=== PATIENT | female | born 1995 | race Caucasian/White ===

== ENCOUNTER 2021-12-20 04:30 | Inpatient (IN) ==
[2021-12-20] MEDS ORDERED: OXYTOCIN 30 UNITS/500 ML BAG IV PRN ×2 (05:03→07:57)
[2021-12-20 05:55] LABS: Hematocrit (blood only) 36.9 % (37-47); Hemoglobin 12.7 g/dL (12.0-16.0); Mean Corpuscular Hgb Conc 34.4 g/dL (32-36); Mean Platelet Volume 11.5 fL (7.4-10.4); Platelet Count 174 K/uL (130-400); RDW Coefficient of Variation 13.9 % (11.5-14.5); White Blood Count 11.21 K/uL (4.8-10.8)
[2021-12-20] MEDS: LACTATED RINGER'S 1,000 ML IV PRN ×3 (06:30→11:28)
[2021-12-20] MEDS ORDERED: BUPIVACAINE 0.25% 30 ML VIAL ONE (06:34)
[2021-12-20] MEDS ORDERED: fentaNYL citrate 100 MCG/2 ML VIAL ONE (06:34)
[2021-12-20] MEDS ORDERED: SODIUM CHLORIDE 0.9% INJ 10 ML VIAL ONE (06:34)
[2021-12-20] MEDS ORDERED: ePHEDrine sulfate 50 MG/ML AMP ONE (06:34)
[2021-12-20] MEDS ORDERED: fentaNYL 2MCG/ML ROPIVACAINE 1.25MG/ML 100 ML BAG EPI ONE (06:34)
--- NOTE | 2021-12-20 06:44 | Anesthesiology Consultation ---
Date of Service December 20, 2021 Assessment & Plan Chart Review Chart Review: Acceptable Risk for Surgery, Patient NOT seen in Pre Admission Testing and Acceptable Risk for Labor Epidural Consults Requested none ASA ASA2 Proposed Anesthesia Anesthesia Type: Labor Epidural and CSE History Height/Weight Height: 5 ft 2 in Weight: 92.533 kg Allergies Allergy/AdvReac Type Severity Reaction Status Date / Time ethinyl estradiol AdvReac Intermediate Tachycardia Verified 12/16/21 13:49 [From Larissia] levonorgestrel AdvReac Intermediate Tachycardia Verified 12/16/21 13:49 [From Larissia] Medications Home Medications Medication Instructions Recorded Confirmed Last Taken prenat.vits,sunny,jhr-xwdt-citab 1 tab PO DAILY 02/25/21 12/20/21 12/19/21 levothyroxine 100 mcg capsule 100 mcg PO DAILY cap 05/07/21 12/20/21 12/12/21 (Tirosint) acetone (urine) test (Ketone Urine #50 ea 10/08/21 12/16/21 Unknown Test) blood sugar diagnostic (OneTouch #150 ea 10/08/21 12/16/21 Unknown Verio test strips) blood-glucose meter (OneTouch #1 ea 10/08/21 12/16/21 Unknown Verio Flex meter) lancets 33 gauge (OneTouch Delica #150 ea 10/08/21 12/16/21 Unknown Plus Lancet) Active Medications Generic Name Dose Route Start Last Admin Trade Name Freq PRN Reason Stop Dose Admin Lactated Ringer's 1,000 mls @ 125 mls/hr 12/20/21 05:03 12/20/21 06:30 Lr IV 12/22/21 05:02 999 mls/hr .Q8H PRN Administration L&D Protocol Protocol Past Medical History Medical History Hypothyroid No significant past medical history Exercise / Class Metabolic Activity II 4-5 Yardwork/Stairs/Walk up hill Past Family History Family History Mother Thyroid disease Breast cancer Grandmother (Maternal) Breast cancer Grandmother (Paternal) Breast cancer Grandfather (Maternal) Epilepsy Past Surgical History Surgical History No significant past surgical history S/P wisdom tooth extraction Past Anesthesia History No Hx of Anesthesia Complications and No Family Hx of Anesthesia Complications History of PONV No Hx of PONV and No Hx of Motion Sickness Social History Smoking Status: Never smoker Hx Alcohol Use: No Hx Substance Use: No Physical Exam Vital Signs Last Vital Signs Pulse 96 H 12/20/21 04:41 Resp 18 12/20/21 04:43 BP 121/71 12/20/21 04:41 Testing Laboratory Results 12/20/21 05:37
[2021-12-20] MEDS ORDERED: ONDANSETRON INJ 2 MG/ML 2 ML VIAL IV PRN (07:28)
[2021-12-20] MEDS ORDERED: ePHEDrine sulfate 50 MG/ML AMP IV PRN (07:28)
[2021-12-20] MEDS ORDERED: fentaNYL 2MCG/ML ROPIVACAINE 1.25MG/ML 100 ML BAG EPI PRN (07:28)
[2021-12-20] MEDS ORDERED: diphenhydrAMINE 50 MG/ML VIAL IV PRN (07:28)
[2021-12-20] MEDS ORDERED: PROMETHAZINE HCL 25 MG in SODIUM CHLORIDE 0.9% 50 ML IV PRN (07:28)
[2021-12-20] MEDS ORDERED: NALOXONE HCL 0.4 MG/1 ML VIAL/CARP IV PRN (07:28)
[2021-12-20] MEDS ORDERED: NALOXONE HCL 1 MG in SODIUM CHLORIDE 0.9% 1000ML 1,000 ML IV PRN (07:28)
[2021-12-20] MEDS ORDERED: NALBUPHINE HCL INJ 10 MG/ML AMP IV PRN (07:28)
--- NOTE | 2021-12-20 08:04 | History & Physical Report ---
Date of Service December 20, 2021 Assessment & Plan (1) SROM (spontaneous rupture of membranes): (2) Gestational diabetes mellitus (GDM) affecting , antepartum: (3) Hypothyroidism during : Plan: 26 y/o at 40 2/7 wga presents w/ SROM VSS Fetus cat 1 SROM - SVE similar to on arrival, discussed pitocin and pt amenable GBS neg epidural in place Admission and Anticipated Discharge Date Admission Date: December 20, 2021 History of Present Illness Chief Complaint: LOF Primary Care Provider: Vijaya Souza, DO 26 y/o at 40 2/7 wga presents w/ SROM early this AM and contractions. Went to bathroom and voided, then felt gush of fluid that has not stopped since. Positive nitrazine and grossly ruptured by nursing exam. Contractions started after PNI: A1GDM Hypothyroid FOB's 1/2 sister with spina bifida Past REGULATOR INSPECTOR Hx: G1 2020 SAB G2 current q23-25d cycles denies hx STIs Allergies Allergy/AdvReac Type Severity Reaction Status Date / Time ethinyl estradiol AdvReac Intermediate Tachycardia Verified 12/16/21 13:49 [From Larissia] levonorgestrel AdvReac Intermediate Tachycardia Verified 12/16/21 13:49 [From Larissia] Home Medications Medication Instructions Recorded Confirmed Type prenat.vits,sunny,wxh-ecnq-gatiw 1 tab PO DAILY 02/25/21 12/20/21 History levothyroxine 100 mcg capsule 100 mcg PO DAILY cap 05/07/21 12/20/21 History (Tirosint) acetone (urine) test (Ketone Urine #50 ea 10/08/21 12/16/21 Rx Test) blood sugar diagnostic (OneTouch #150 ea 10/08/21 12/16/21 Rx Verio test strips) blood-glucose meter (OneTouch #1 ea 10/08/21 12/16/21 Rx Verio Flex meter) lancets 33 gauge (OneTouch Delica #150 ea 10/08/21 12/16/21 Rx Plus Lancet) Patient History Medical History Hypothyroid No significant past medical history Surgical History No significant past surgical history S/P wisdom tooth extraction Family History Mother Thyroid disease Breast cancer Grandmother (Maternal) Breast cancer Grandmother (Paternal) Breast cancer Grandfather (Maternal) Epilepsy Social History Smoking Status: Never smoker Hx Alcohol Use: No Hx Substance Use: No Preferred Language: Venezuelan Communication Ability: Effective Centrifugal Station Operator Required: No Beliefs That Will Affect Care: None marital status: Single marital status details: Elroy (31) [phone] Current Living Situation: Significant Other Current Living Situation Comment: lives with fob, 1 cat, fob to change litter. current occupational status: employed current occupation: [employer] Other Information That Helps Us Care for You: No Feels Safe at Home: Yes Safety Concerns: Feels Safe At This Time Assistive Devices: None Physical Exam Genitourinary: OB Exam Abdomen: + vertex and + estimated weight (7-8) Manual OB Exam: + cervical dilation 3 cm, + cervical effacement 60% and + station -2 OB Exam Monitor Tracing: + external FHT monitor used, + external uterine monitor used (q3-4) and + category I (140/mod/+accel/-decel) Results & Data ([facility]) Vital Signs (Past 12 Hours) Vital Signs Temp Pulse Resp BP Pulse Ox 12/20/21 07:55 91 H 97 12/20/21 07:50 85 97 12/20/21 07:46 96 H 115/62 12/20/21 07:45 105 H 96 12/20/21 07:40 120 H 98 12/20/21 07:39 126 H 140/67 12/20/21 07:35 89 100 12/20/21 07:34 81 117/66 12/20/21 07:30 78 98 12/20/21 07:29 176 H 109/42 L 12/20/21 07:27 99 H 92/48 L 12/20/21 07:25 97 H 99 12/20/21 07:23 92 H 91/54 L 12/20/21 07:20 101 H 96 06/26/22 07:18 98 H 126/63 06/26/22 07:15 99 H 99 12/20/21 07:13 96 H 91 12/20/21 07:10 94 H 98 12/20/21 07:05 93 H 98 12/20/21 05:00 97.5 F L 12/20/21 04:43 18 12/20/21 04:41 96 H 121/71 Laboratory Results OB Labs: Blood Type O Positive 05/13/21 Antibody Screen NEGATIVE 05/13/21 Hemoglobin 12.3 g/dL (12.0-16.0) 09/30/21 Hematocrit 37.0 % (37-47) 09/30/21 Mean Corpuscular Volume 90.9 fL (80-100) 05/13/21 Platelet Count 223 K/uL (130-400) 05/13/21 Rubella IgG Antibody Immune (Immune) 05/13/21 Rapid Plasma Reagin Nonreactive (Nonreactive) 05/13/21 Hepatitis B Surface Antigen Neg (Neg) 05/13/21 HIV (1&2) Ab and P24 Ag, 4th Gener Neg (Neg) 05/13/21 Glucose 1 Hour 50 gm Load 159 mg/dl (70-130) H 09/30/21 Maternal Serum Alpha Fetoprotein 27.2 ng/mL 07/08/21 OB Optional Labs: Chlamydia trachomatis RNA NOT DETECTED (NOT DETECTED) 05/13/21 Neisseria gonorrhoeae RNA NOT DETECTED (NOT DETECTED) 05/13/21 Thyroid Stimulating Hormone (TSH) 0.609 uIu/ml (0.300-4.500) 06/29/21 Alpha Fetoprotein Triple Screen SEE NOTEB 07/08/21 Labs Reviewed: low risk panorama--[facility] gudelia afp--[facility] hep C neg--[facility] Diagnostic Findings ant plac Code Status & VTE Plan VTE Prophylaxis Plan VTE Prophylaxis will be ordered: No Coding Level of Care Code None Diagnoses SROM (spontaneous rupture of membranes) Gestational diabetes mellitus (GDM) affecting , antepartum O24.419 Hypothyroidism during O99.280; E03.9
--- NOTE | 2021-12-20 13:21 | Delivery Summary ---
Vaginal Delivery Summary Date of Service December 20, 2021 Vaginal Delivery Summary DIAGNOSES: 1. Mcneill intrauterine at 40w2d gestation. 2. Group B Streptococcus Neg. PROCEDURE: Spontaneous vaginal delivery and repair of second degree laceration. SURGEON: Carol Ann Medeiros MD. ROTARY DUMP OPERATOR: None. ESTIMATED BLOOD LOSS: 350 mL. COMPLICATIONS: None. PLACENTA: Spontaneous and intact with a 3-vessel cord. DISPOSITION: Stable to labor and delivery. DESCRIPTION: Due to bradycardia that became persistent once the patient began pushing, she was counseled on VAVD and accepted the risks and benefits. Bladder was emptied via straight cath, head was palpated and in either DOA or DOP position, difficult to assess due to caput and molding. The vacuum was applied to the most forward-facing part of the head, felt to be the likely flexion point, and traction was gently applied through the next contraction. The head came to , and at the end of the third pushing effort in that one contraction, just as mom was about to rest, the vacuum popped off. From that point the FHT seemed to have improved to a normal baseline, so the vacuum was not re-applied and the mother was allowed and encouraged to push. The patient pushed well. Once it was ready, the infant's head was allowed to deliver with contraction force and no further active pushing, with the perineum protected during this time. There was no nuchal cord. The head was in DOA pos ition and the left shoulder was anterior. The shoulders and body delivered without any difficulty, and the was placed on the maternal abdomen. It was vigorous and moving all extremities, and making respiratory efforts. The cord was doubly clamped by the MD and then cut by the FOB. The placenta delivered spontaneously and was noted to be intact and with a 3VC. The cervix, vagina and perineum were examined and were found to have a small second- degree laceration which was repaired using 3-0 vicryl in the usual manner. The fundus was firm and lochia minimal immediately after delivery. [facility] Vaginal Delivery Charge Vaginal Delivery Codes: 71902 global code for the antepartum, delivery, and post-
--- NOTE | 2021-12-20 13:40 | Anesthesia Procedure Note ---
Date of Service December 20, 2021 Anesthesia Post Epidural Note Vital Signs Vital Signs: Temp Pulse Resp BP Pulse Ox 36.7 C 94 H 18 113/58 L 83 L 12/20/21 11:10 12/20/21 13:29 12/20/21 11:10 12/20/21 13:29 12/20/21 12:46 Pain Intensity Abdomen: Pain Intensity: 9 Notes Mental Status: alert / awake / arousable Nausea / Vomiting: adequately controlled Pain: adequately controlled Airway Patency, RR, SpO2: stable & adequate BP & HR: stable & adequate Hydration State: stable & adequate Neuraxial Anesthesia: was administered and sensory block is resolving Anesthetic Complications: no major complications apparent Epidural: Removed without complications and With tip intact
[2021-12-20] MEDS ORDERED: oxyCODONE/ACETAMINOPHEN 5mg/325mg TAB PO PRN (13:41)
[2021-12-20] MEDS ORDERED: BENZOCAINE 20% AER SPR 82.5 GM CAN EXT PRN (13:41)
[2021-12-20] MEDS ORDERED: DIPHTHERIA/TETANUS/PERTUSSIS 0.5 ML SYR/VIAL IM ONE (13:41)
[2021-12-20] MEDS ORDERED: ACETAMINOPHEN 325 MG TAB PO PRN (13:41)
[2021-12-20] MEDS ORDERED: HYDROCORTISONE ACETATE 25 MG SUPP PR PRN (13:41)
[2021-12-20] MEDS: IBUPROFEN 600 MG TAB PO PRN (20:04)
[2021-12-20] MEDS: DOCUSATE SODIUM 100 MG CAP PO SCH (21:04)
[2021-12-21] MEDS: IBUPROFEN 600 MG TAB PO PRN ×4 (04:01→20:53)
[2021-12-21] MEDS: TIROSINT 100 MCG PO SCH (05:59)
[2021-12-21] MEDS ORDERED: LEVOTHYROXINE SODIUM 125 MCG TABLET PO ONE (06:00)
[2021-12-21 06:03] LABS: Hematocrit (blood only) 32.1 % (37-47); Hemoglobin 10.8 g/dL (12.0-16.0); Mean Corpuscular Hemoglobin 30.6 pg (25-34); Mean Corpuscular Hgb Conc 33.6 g/dL (32-36); Mean Corpuscular Volume 90.9 fL (80-100); Mean Platelet Volume 10.7 fL (7.4-10.4); Platelet Count 137 K/uL (130-400); RDW Coefficient of Variation 14.3 % (11.5-14.5); RDW Standard Deviation 47.4 fL (36.4-46.3); Red Blood Count 3.53 M/uL (4.2-5.4); White Blood Count 12.03 K/uL (4.8-10.8)
[2021-12-21] MEDS ORDERED: TIROSINT PO SCH (06:30)
[2021-12-21] MEDS ORDERED: LEVOTHYROXINE SODIUM 100 MCG TABLET PO SCH (06:30)
--- NOTE | 2021-12-21 07:35 | Obstetrical Progress Note ---
Date of Service December 21, 2021 Assessment & Plan (1) Encounter for care and examination after delivery: Plan: Patient is a 26-year-old now female who delivered via normal spontaneous vaginal delivery, day 1. complicated by ges tational diabetes mellitus and hypothyroidism -Continue routine care, will keep today -GBS negative,O+, antibody negative, rubella immune -Hemoglobin 10.8 -Encouraged ambulation -Encourage breast-feeding - follow-up with Dr. Medeiros in 6 weeks Admission and Anticipated Discharge Date Admission Date: December 20, 2021 Supervising Physician Co-Signing Physician Notes Resident Physician Supervision Note: I was present with Dr. Emery during the history and exam. I discussed the case with the resident and agree with the findings and plan as documented in the note. Any exceptions or clarifications are listed here: PP1 s/p , doing well. Meeting all pp milestones, continue routine pp care Documented By: Yenifer Ugarte MD Subjective Patient is a 26-year-old now female who delivered via normal spontaneous vaginal delivery, day 1. complicated by gestational diabetes mellitus and hypothyroidism. Patient doing overall well, seems fatigued this morning. Patient been able to walk around the room without difficulty. Patient voiding and passing gas. No bowel movement as of yet. Patient eating and drinking without nausea or vomiting. Lochia moderate and improving. Patient breast-feeding without difficulty. Pain currently controlled and rated about a 3 out of 10. Patient denies fever, chills, chest pain, shortness of breath, UTI symptoms, or headache. Patient has no other complaints at this time. Review of Systems Review of Systems: All systems reviewed & are unremarkable except as noted in HPI & below Physical Exam Constitutional: WD/WN, vitals as above Eyes: + anicteric sclerae Neck: normal visual inspection Respiratory: normal respiratory effort, lungs clear to auscultation Cardiovascular: RRR, no murmur, no edema Gastrointestinal (Abdomen): normal bowel sounds, soft, nontender, no hepatosplenomegaly Musculoskeletal: Head/Neck/Chest: normocephalic and head atraumatic Skin: no rashes, warm and dry Neurologic: moves all extremities Psychiatric: A+Ox3, euthymic affect Genitourinary: Uterus fundus palpated at the level of the umbilicus, firm. Results & Data ([facility]) Vital Signs (Past 12 Hours) Vital Signs Temp Pulse Resp BP Pulse Ox 12/21/21 03:55 36.6 C 82 18 102/65 98 12/20/21 23:40 36.7 C 84 18 118/70 97
[2021-12-21] MEDS: DOCUSATE SODIUM 100 MG CAP PO SCH ×2 (08:27→20:53)
[2021-12-21] MEDS: PRENATAL VITAMIN 1 TAB PO SCH (08:27)
--- NOTE | 2021-12-22 05:24 | Obstetrical Progress Note ---
Date of Service December 22, 2021 Assessment & Plan (1) Encounter for care and examination after delivery: Plan: Patient is a 26-year-old now female who delivered via normal spontaneous vaginal delivery, day 2. complicated by ges tational diabetes mellitus and hypothyroidism -Continue routine care, discharge today, discharge instructions reviewed with patient -GBS negative,O+, antibody negative, rubella immune -Hemoglobin 10.8 -Encouraged ambulation -Encourage breast-feeding - follow-up with Dr. Medeiros in 6 weeks Admission and Anticipated Discharge Date Admission Date: December 20, 2021 Supervising Physician Co-Signing Physician Notes Resident Physician Supervision Note: I interviewed and examined the patient. Discussed with Dr. Emery and agree with findings and plan as documented in the note. Any exceptions or clarifications are listed here: [ ] Documented By: Carol Ann Medeiros MD, FACOG Subjective Patient is a 26-year-old now female who delivered via normal spontaneous vaginal delivery, day 2. complicated by gestational diabetes mellitus and hypothyroidism. Patient doing overall well. Patient been able to walk around the room without difficulty. Patient voiding and passing gas. No bowel movement as of yet. Patient eating and drinking without nausea or vomiting. Lochia moderate and improving. Patient breast-feeding without difficulty. Pain currently controlled and rated about a 3 out of 10. Patient denies fever, chills, chest pain, shortness of breath, UTI symptoms, or headache. Patient has no other complaints at this time. Review of Systems Review of Systems: All systems reviewed & are unremarkable except as noted in HPI & below Physical Exam Constitutional: WD/WN, vitals as above Eyes: + anicteric sclerae Neck: normal visual inspection Respiratory: normal respiratory effort, lungs clear to auscultation Cardiovascular: RRR, no murmur, no edema Gastrointestinal (Abdomen): normal bowel sounds, soft, nontender, no hepatosplenomegaly Musculoskeletal: Head/Neck/Chest: normocephalic and head atraumatic Skin: no rashes, warm and dry Neurologic: moves all extremities Psychiatric: A+Ox3, euthymic affect Genitourinary: Uterine fundus palpated 2 cm below the umbilicus, firm. Results & Data ([facility]) Vital Signs (Past 12 Hours) Vital Signs Temp Pulse Resp BP 12/22/21 00:00 36.6 C 80 17 108/67 12/21/21 20:00 36.7 C 82 18 111/73
[2021-12-22] MEDS: TIROSINT 100 MCG PO SCH (05:35)
[2021-12-22 07:03] LABS: Hematocrit (blood only) 31.7 % (37-47); Hemoglobin 10.5 g/dL (12.0-16.0)
[2021-12-22] MEDS: PRENATAL VITAMIN 1 TAB PO SCH (07:27)
[2021-12-22] MEDS: DOCUSATE SODIUM 100 MG CAP PO SCH (07:27)
[2021-12-22] MEDS: IBUPROFEN 600 MG TAB PO PRN (07:28)
== END 2021-12-22 14:10 | disposition home or self-care (01) | DRG 807 ==
LOC: OPB 04:30 → 4S1 04:33 → 4E2 16:00

== ENCOUNTER 2024-07-12 07:34 | Inpatient (IN) ==
[2024-07-12] MEDS ORDERED: LIDOCAINE 1% LOCAL 20 ML VIAL INFIL PRN (07:44)
[2024-07-12] MEDS ORDERED: OXYTOCIN 30 UNITS/NSS 30 UNITS/500 ML BAG IV PRN ×2 (07:44→12:59)
[2024-07-12] MEDS: SODIUM CHLORIDE 0.9% 1,000 ML IV SCH (08:19)
[2024-07-12] MEDS: OXYTOCIN 30 UNITS/NSS 30 UNITS/500 ML BAG IV PRN (08:19)
[2024-07-12 08:35] LABS: Hemoglobin 12.6 g/dl (12.0-16.0); Mean Corpuscular Hemoglobin 30.1 pg (25.0-34.0); Mean Corpuscular Hgb Conc 34.1 g/dL (32.0-36.0); Mean Corpuscular Volume 88.5 fL (80.0-100.0); Mean Platelet Volume 11.9 fL (9.4-12.4); Platelet Count 172 K/uL (130-400); RDW Coefficient of Variation 13.7 % (11.5-14.5); RDW Standard Deviation 44.3 fL (36.4-46.3); Red Blood Count 4.18 M/uL (4.20-5.40); White Blood Count 8.85 K/ul (4.8-10.8)
--- NOTE | 2024-07-12 09:40 | Anesthesiology Consultation ---
Date of Service July 12, 2024 Assessment & Plan (1) Encounter for pre-operative examination: Chart Review Chart Review: Acceptable Risk for Labor Epidural History Height/Weight Height: 5 ft 1.5 in Weight: 90.083 kg Allergies Allergy/AdvReac Type Severity Reaction Status Date / Time ethinyl estradiol AdvReac Intermediate Tachycardia Verified 07/11/24 08:36 [From Larissia] levonorgestrel AdvReac Intermediate Tachycardia Verified 07/11/24 08:36 [From Larissia] Medications Home Medications Medication Instructions Recorded Confirmed Last Taken prenat.vits,sunny,mrd-pzba-frbqj 1 tab PO DAILY 02/25/21 07/12/24 07/11/24 acetone (urine) test (Ketone Urine #50 ea 02/20/24 07/11/24 Unknown Test strips) blood sugar diagnostic (OneTouch #150 ea 02/20/24 07/11/24 Unknown Verio test strips) lancets 33 gauge (OneTouch Delica #150 ea 02/20/24 07/11/24 Unknown Plus Lancet) Tirosint 125 mcg capsule 125 mcg PO DAILY #30 caps 06/26/24 07/12/24 07/12/24 (levothyroxine) Active Medications Generic Name Dose Route Start Last Admin Trade Name Freq PRN Reason Stop Dose Admin Oxytocin 30 units in 500 mls @ 3 mls/hr 07/12/24 07:44 07/12/24 08:55 Pitocin 30 Units/Nss IV 07/14/24 07:43 0.18 units/hr .Q24H PRN 3 mls/hr Labor Induction/Augmentation Titration Protocol 0.18 UNITS/HR Sodium Chloride 1,000 mls @ 50 mls/hr 07/12/24 08:15 07/12/24 09:14 Nss IV 07/13/24 08:14 999 mls/hr .Q20H HILDA Infusion Past Medical History Medical History Thyroid nodule Hypothyroidism History of gestational diabetes Goiter Past Family History Family History Mother Thyroid disease Breast cancer Grandmother (Maternal) Breast cancer Grandmother (Paternal) Breast cancer Grandfather (Maternal) Epilepsy Denies family history of Ovarian cancer Prostate cancer Myocardial infarction Colorectal cancer Past Surgical History Surgical History S/P wisdom tooth extraction Social History Smoking Status: Never smoker Do You Dip or Chew Tobacco: No Hx Alcohol Use: No Hx Substance Use: No Physical Exam Vital Signs Last Vital Signs Temp 36.5 C 07/12/24 09:05 Pulse 87 07/12/24 08:27 Resp 18 07/12/24 07:49 BP 112/73 07/12/24 08:27 Testing Laboratory Results 07/12/24 07:54 07/12/24 09:12 POC Glucose 93
[2024-07-12] MEDS: LIDOCAINE 2%/EPINEPHRINE 1:200,000 20 ML PF ONE (10:06)
[2024-07-12] MEDS: fentaNYL citrate PF 100 MCG/2 ML VIAL ONE (10:06)
[2024-07-12] MEDS: BUPIVACAINE 0.25% PF 30 ML VIAL ONE (10:06)
[2024-07-12] MEDS: fentANYL 2 MCG/ML BUPIVacaine 0.125%-NSS 100ML BAG ONE (10:09)
[2024-07-12] MEDS ORDERED: fentANYL 2 MCG/ML BUPIVacaine 0.125%-NSS 100ML BAG EPI PRN (10:12)
[2024-07-12] MEDS ORDERED: fentaNYL citrate PF 100 MCG/2 ML VIAL EPI PRN (10:12)
[2024-07-12] MEDS ORDERED: SODIUM CHLORIDE 0.9% PF INJ 10 ML VIAL EPI PRN (10:12)
[2024-07-12] MEDS ORDERED: NALOXONE HCL 0.4 MG/1 ML VIAL/CARP IV PRN (10:12)
[2024-07-12] MEDS ORDERED: NALOXONE HCL 1 MG in SODIUM CHLORIDE 0.9% 1,000 ML IV PRN (10:12)
[2024-07-12] MEDS ORDERED: ePHEDrine sulfate 50 MG/ML AMP IV PRN (10:12)
[2024-07-12] MEDS ORDERED: ONDANSETRON INJ 2 MG/ML 2 ML VIAL IV PRN (10:12)
[2024-07-12] MEDS ORDERED: ROPIVACAINE 0.5% PF 5 MG/ML 20 ML VIAL EPI PRN (10:12)
[2024-07-12] MEDS ORDERED: LIDOCAINE 2% MPF LOCAL 5 ML VIAL EPI PRN (10:12)
[2024-07-12] MEDS ORDERED: BUPIVACAINE 0.25% PF 30 ML VIAL EPI PRN (10:12)
--- NOTE | 2024-07-12 10:46 | History & Physical Report ---
Date of Service July 12, 2024 Assessment & Plan (1) Encounter for induction of labor: (2) Gestational diabetes mellitus (GDM) affecting , antepartum: Plan admit, iv,labs. epidural when desires. fhts categ 1. pitocin induction. Admission and Anticipated Discharge Date Admission Date: July 12, 2024 History of Present Illness Chief Complaint: planned induction Primary Care Provider: Vijaya Souza, DO 28yo at 40wks ega presents to LD for planned induction. When she arrived for yeung balloon last pm, it kept falling out due to being 2- 3cm already. Sent home. Today she denied ctx, rom, vb. on arrival PNC c/b 1. GDM, diet controlled 2. Hypothyroidism PNL rh pos, ri, gbs neg OBH: x 1 GYNH: nl paps no stds Allergies Allergy/AdvReac Type Severity Reaction Status Date / Time ethinyl estradiol AdvReac Intermediate Tachycardia Verified 07/11/24 08:36 [From Larissia] levonorgestrel AdvReac Intermediate Tachycardia Verified 07/11/24 08:36 [From Larissia] Home Medications Medication Instructions Recorded Confirmed Type prenat.vits,sunny,lxv-afxk-inmgp 1 tab PO DAILY 02/25/21 07/12/24 History acetone (urine) test (Ketone Urine #50 ea 02/20/24 07/11/24 Rx Test strips) blood sugar diagnostic (OneTouch #150 ea 02/20/24 07/11/24 Rx Verio test strips) lancets 33 gauge (OneTouch Delica #150 ea 02/20/24 07/11/24 Rx Plus Lancet) Tirosint 125 mcg capsule 125 mcg PO DAILY #30 caps 06/26/24 07/12/24 Rx (levothyroxine) Patient History Medical History Thyroid nodule Hypothyroidism History of gestational diabetes Goiter Surgical History S/P wisdom tooth extraction Family History Mother Thyroid disease Breast cancer Grandmother (Maternal) Breast cancer Grandmother (Paternal) Breast cancer Grandfather (Maternal) Epilepsy Denies family history of Ovarian cancer Prostate cancer Myocardial infarction Colorectal cancer Social History (Updated 12/01/23 @ 11:00 by Deanne Dupont RN) Smoking Status: Never smoker Do You Dip or Chew Tobacco: No; Hx Alcohol Use: No Hx Substance Use: No Preferred Language: American Communication Ability: Effective Livestock Producer Required: No Beliefs That Will Affect Care: None marital status: marital status details: Elroy (33) [phone] Current Living Situation: Spouse and Family Current Living Situation Comment: lives with and son, 2 cat, fob to change litter. 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 Assistive Devices: None Review of Systems as per Subjective / HPI Physical Exam Constitutional: WD/WN, vitals as above Gastrointestinal (Abdomen): soft gravid nt efw 7-8# Musculoskeletal: no edema nontender calves Neurologic: grossly normal Psychiatric: A+Ox3, euthymic affect Genitourinary: Manual OB Exam: + cervical dilation 3 cm, + cervical effacement 50%, + station -2 and + amniotic fluid (arom) clear OB Exam Monitor Tracing: + external FHT monitor used, + external uterine monitor used, + category I and + normal FHT variability Results & Data Vital Signs (Past 12 Hours) Vital Signs Temp Pulse Resp BP Pulse Ox 07/12/24 10:40 69 07/12/24 10:40 120/80 07/12/24 10:39 99 07/12/24 10:39 69 07/12/24 10:37 78 07/12/24 10:37 117/80 07/12/24 10:34 99 07/12/24 10:34 79 07/12/24 10:34 70 07/12/24 10:34 116/71 07/12/24 10:31 75 07/12/24 10:31 116/67 07/12/24 10:29 97 07/12/24 10:29 69 07/12/24 10:28 75 07/12/24 10:28 113/66 07/12/24 10:25 73 07/12/24 10:25 118/68 07/12/24 10:24 98 07/12/24 10:24 75 07/12/24 10:22 85 07/12/24 10:22 127/91 07/12/24 10:19 98 07/12/24 10:19 78 07/12/24 10:19 151/95 H 07/12/24 10:16 85 07/12/24 10:16 124/69 07/12/24 10:14 98 07/12/24 10:14 79 07/12/24 10:14 118/66 07/12/24 10:10 78 07/12/24 10:10 99/57 L 07/12/24 10:09 98 07/12/24 10:09 78 07/12/24 10:07 67 07/12/24 10:07 108/59 L 07/12/24 10:04 98 07/12/24 10:04 78 07/12/24 10:04 121/65 07/12/24 10:01 87 07/12/24 10:01 131/64 07/12/24 09:59 98 07/12/24 09:59 78 07/12/24 09:59 91 H 07/12/24 09:59 147/71 H 07/12/24 09:56 80 07/12/24 09:56 130/71 07/12/24 09:54 100 07/12/24 09:54 85 07/12/24 09:52 82 07/12/24 09:52 142/82 H 07/12/24 09:49 99 07/12/24 09:49 80 07/12/24 09:44 98 07/12/24 09:44 79 07/12/24 09:39 99 07/12/24 09:39 82 07/12/24 09:05 97.7 F 07/12/24 08:27 87 112/73 07/12/24 07:51 87 112/73 07/12/24 07:49 18 07/12/24 07:49 97.7 F 18 Coding Level of Care Code None Diagnoses Encounter for induction of labor Z34.90 Gestational diabetes mellitus (GDM) affecting , antepartum O24.419
[2024-07-12] MEDS: SODIUM CHLORIDE 0.9% PF INJ 10 ML VIAL ONE (11:13)
[2024-07-12] MEDS: ePHEDrine sulfate 50 MG/ML AMP ONE (11:14)
[2024-07-12] MEDS: BUPIVACAINE 0.25% PF 30 ML VIAL EPI STA (11:15)
[2024-07-12] MEDS: SODIUM CHLORIDE 0.9% PF INJ 10 ML VIAL EPI STA (11:15)
[2024-07-12] MEDS: fentaNYL citrate PF 100 MCG/2 ML VIAL EPI STA (11:15)
[2024-07-12] MEDS: LIDOCAINE 2%/EPINEPHRINE 1:200,000 20 ML PF EPI STA (11:15)
--- NOTE | 2024-07-12 12:40 | Delivery Summary ---
Vaginal Delivery Summary Date of Service July 12, 2024 Vaginal Delivery Summary and 2nd Degree LAC The patient dilated to complete and pushed to deliver a viable male infant Apgars 8 and 9 via over 2nd degree perineal laceration. Shoulders and body rapidly delivered due to maternal expulsive efforts through body cord. was vigorous and crying at . Cord clamped at 30 seconds of life and to maternal abdomen where the cord was then doubly clamped and cut. Placenta delivered spontaneously and intact, three-vessel cord. Hemostasis achieved with dilute pitocin and uterine massage. Laceration repaired in layers in usual fashion with 3-0 vicryl. Cervix and sulci intact. QBL 50 cc. Mother and baby stable in recovery. [facility] Vaginal Delivery Charge Delivery Type Details: and 2nd Degree LAC
[2024-07-12] MEDS ORDERED: oxyCODONE/ACETAMINOPHEN 5mg/325mg TAB PO PRN (12:59)
[2024-07-12] MEDS ORDERED: BENZOCAINE 20% SPRY 85 APPLN/85 GM CAN EXT PRN (12:59)
[2024-07-12] MEDS ORDERED: HYDROCORTISONE ACETATE 25 MG SUPP PR PRN (12:59)
--- NOTE | 2024-07-12 12:59 | Anesthesia Procedure Note ---
Date of Service July 12, 2024 Anesthesia Post Epidural Note Vital Signs Vital Signs: Temp Pulse Resp BP Pulse Ox 36.5 C 71 16 107/65 94 07/12/24 09:05 07/12/24 12:57 07/12/24 11:10 07/12/24 12:57 07/12/24 12:41 Notes Mental Status: alert / awake / arousable and participated in evaluation Nausea / Vomiting: adequately controlled Pain: adequately controlled Airway Patency, RR, SpO2: stable & adequate BP & HR: stable & adequate Hydration State: stable & adequate Neuraxial Anesthesia: was administered and sensory block is resolving Anesthetic Complications: no major complications apparent Epidural: Removed without complications and With tip intact
[2024-07-12] MEDS: IBUPROFEN 600 MG TAB PO PRN (17:51)
[2024-07-12] MEDS: DIPHTHER/TETAN/PERTUS Vaccine (Tdap, Adol/Adult) 0.5mL IM ONE (19:18)
[2024-07-12] MEDS: DOCUSATE SODIUM 100 MG CAP PO SCH (21:29)
[2024-07-12] MEDS: ACETAMINOPHEN 325 MG TAB PO PRN (21:30)
[2024-07-13] MEDS: LEVOTHYROXINE SODIUM 125 MCG TABLET PO SCH (07:00)
--- NOTE | 2024-07-13 07:15 | Obstetrical Progress Note ---
Date of Service July 13, 2024 Assessment & Plan (1) Hypothyroidism during : (2) Gestational diabetes mellitus (GDM) affecting , antepartum: (3) Normal spontaneous vaginal delivery: Plan Both mom and baby doing well. Discharge today as per protocol. Admission and Anticipated Discharge Date Admission Date: July 12, 2024 Supervising Physician Co-Signing Physician Notes Resident Physician Supervision Note: I was present with Dr. Mcleod during the history and exam. I discussed the case with the resident and agree with the findings and plan as documented in the note. Any exceptions or clarifications are listed here: stable doing well, eating,voiding, ambulating, breast feeding exam abd firm 2cm down, nt, ext nt calves. ppd#1 s/p doing well. desires dc home. instructions reviewed f/u 6wk pp. Documented By: Kinjal Russell MD, FACOG Subjective #1PPD following SNVD at 40 WOG. No active complains Both mom and baby doing well. Pain: Mild, intermittent Lochia: Moderate Diet: Regular Ob diet Gas: Aware of passing, no abdominal distension Peeing: Normal, no bladder distension Ambulation: Normally Review of Systems Review of Systems: No SOB, chest pain, leg pain No dizziness, headache, palpitation No Blurring of vision , fever Physical Exam Physical Exam: General: Alert and oriented. No acute distress. CVS: S1 S2+ No murmurs, regular rhythm. Respiratory: CTA bilaterally. No rhonchi, wheezes, or crackles. No increased work of breathing. Abdomen: Bowel sound +. Soft, nontender Uterus: Fundus firm and palpable few cm below the umbilicus. Lower extremities: No LE edema. No deep calf pain. Results & Data Vital Signs (Past 12 Hours) Vital Signs Temp Pulse Resp BP Pulse Ox O2 Del Method 07/13/24 03:05 36.5 C 78 16 112/69 97 Room Air 07/12/24 22:33 36.7 C 77 18 111/70 98 Room Air
[2024-07-13] MEDS: PRENATAL VITAMIN 1 TAB PO SCH (07:21)
[2024-07-13 12:07] VITALS: BP 124/76; PULSE 84; RESP 16; TEMP 97.9; O2SAT 98
[2024-07-13] MEDS ORDERED: bisacodyL 5 MG TABEC PO SCH (20:00)
== END 2024-07-13 14:35 | disposition home or self-care (01) | DRG 807 ==
LOC: 4S1 07:34 → 4E2 16:54